=== PATIENT | female | born 1965 | race Caucasian/White ===

== ENCOUNTER → 2016-11-19 | Outpatient (CLI) | payer OTHER ==
[2016-11-22 13:54] LABS: PROGESTERONE 0.2 ng/mL
== END ==
LOC: ELAB 07:50
PROVIDERS: ATTEND Neuromusculoskeletal Medicine & OMM
DX: Z78.0 Asymptomatic menopausal state (principal)
CPT/HCPCS: 36415; 82670; 82679; 84144; 84403

== ENCOUNTER → 2017-04-14 | Outpatient (CLI) | payer OTHER ==
[2017-04-14 14:41] LABS: HEMATOCRIT 42.1 % (35.0-46.0); MEAN CELL VOLUME 88.5 FL (80.0-100.0); MEAN CORPUSCULAR HEMOGLOBIN 29.4 PG (27.0-34.0); MEAN CORPUSCULAR HGB CONC 33.3 % (32.0-36.0); MEAN PLATELET VOLUME 9.3 FL (7.0-11.0); PLATELET COUNT 195 TH/MM3 (150-450); RED BLOOD COUNT 4.76 MIL/MM3 (4.00-5.30); REVIEW FLAG FINAL; WHITE BLOOD COUNT 4.2 TH/MM3 (4.0-11.0)
[2017-04-14 14:46] LABS: ALBUMIN 4.2 GM/DL (3.4-5.0); ALT (GPT) 24 U/L (10-53); ANION GAP 6 MEQ/L (5-15); AST (GOT) 14 U/L (15-37); BICARBONATE 28.4 MEQ/L (21.0-32.0); BLOOD UREA NITROGEN 17 MG/DL (7-18); CALCIUM 9.2 MG/DL (8.5-10.1); CHLORIDE 106 MEQ/L (98-107); CHOLESTEROL 141 MG/DL (120-200); CREATININE 0.85 MG/DL (0.50-1.00); CREATININE RANDOM URINE 142 MG/DL (27-300); GLOMERULAR FILTRATION RATE 70 ML/MIN (>89); GLUCOSE,FASTING 103 MG/DL (74-99); POTASSIUM 4.5 MEQ/L (3.5-5.1); SODIUM (NA) 140 MEQ/L (136-145)
[2017-04-14 14:56] LABS: ALKALINE PHOSPHATASE 52 U/L (45-117); CHOLESTEROL/ HDL RATIO 2.58 RATIO; HDL CHOLESTEROL 54.5 MG/DL (40.0-60.0); LDL CHOLESTEROL 67 MG/DL (0-99); MICROALBUMIN/CREAT RATIO RAND 5 MG/G CRE (0-30); TOTAL BILIRUBIN ADULT 1.9 MG/DL (0.2-1.0); TOTAL PROTEIN 7.4 GM/DL (6.4-8.2); TRIGLYCERIDES 99 MG/DL (42-150)
[2017-04-14 18:02] LABS: HEMOGLOBIN A1C 5.8 % (4.3-6.0); HEMOGLOBIN A1a 1.2 %; HEMOGLOBIN A1b 0.8 %; HEMOGLOBIN F 0.9 %
[2017-04-14 18:03] LABS: HEMOGLOBIN Ao 85.7 %; HEMOGLOBIN P3 3.5 %
== END ==
LOC: ELAB 11:43
DX: E78.5 Hyperlipidemia, unspecified (principal); E11.9 Type 2 diabetes mellitus without complications; I10 Essential (primary) hypertension
CPT/HCPCS: 36415; 80053; 80061; 82043; 83036; 84443; 85027